=== PATIENT | male | born 1965 | race African-American/Black ===

== ENCOUNTER 2022-06-11 15:18 | Emergency (ER) | payer SELFPAY ==
[2022-06-11 16:16] LABS: #Eosinphils 0.5 thou/uL (0.0-0.7); #Monocytes 0.5 thou/uL (0.11-0.59); #Neutrophils 4.1 thou/uL (1.40-6.50); %Basophils 0.7 % (0.0-1.0); %Eosinophils 8.3 % (0.0-10.0); %Lymphocytes 16.2 % (21.0-51.0); %Neutrophils 66.8 % (42.0-75.0); Hemoglobin 11.3 g/dL (14.0-18.0); Mean Corpuscular HGB CONC 31.8 g/dL (32.0-36.0); Mean Corpuscular Hemoglobin 29.8 pg (27.0-31.0); Mean Corpuscular Volume 93.5 fL (78.0-98.0); Mean Platelet Volume 9.5 fL (7.4-10.4); Platelet Count 160 thou/uL (130-400); RBC Distribution Width 15.3 % (11.5-14.5); Red Blood Cell (RBC) Count 3.79 mill/uL (4.70-6.10); White Blood Cell (WBC) Count 6.2 thou/uL (4.8-10.8)
[2022-06-11] MEDS ORDERED: Acetaminophen 500 MG TAB ONE ×2 (16:32)
[2022-06-11 16:33] LABS: ALT (SGPT) 51 U/L (8-55); AST (SGOT) 40 U/L (5-34); Albumin 3.6 g/dL (3.5-5.0); Alkaline Phosphatase 204 U/L (40-110); Anion Gap 14 mmol/L (10-20); BUN (Urea Nitrogen) 21 mg/dL (8.4-25.7); Bilirubin, Total 0.3 mg/dL (0.2-1.2); Calc. Creatinine Clearance 0 mL/min (70-130); Calcium 9.1 mg/dL (7.8-10.44); Carbon Dioxide 25 mmol/L (22-29); Chloride 104 mmol/L (98-107); Estimated GFR 70; Globulin 5.3 g/dL (2.4-3.5); Glucose 157 mg/dL (70-105); Potassium 4.5 mmol/L (3.5-5.1); Protein, Total 8.9 g/dL (6.0-8.3); Sodium 138 mmol/L (136-145)
[2022-06-11 17:09] LABS: Bilirubin Negative (Negative); Blood, Urine Moderate (Negative); Clarity Cloudy (Clear); Glucose, Urine (Dipstick) Negative (Negative); Ketone, Urine Negative (Negative); Leukocyte Negative (Negative); Nitrite Negative (Negative); Protein, Urine (Dipstick) Negative (Neg-Trace); Urobilinogen 0.2 mg/dL (Less than 2)
[2022-06-11 17:11] LABS: RBC/HPF 21-50 HPF (0-3); WBC/HPF 0-3 HPF (0-3)
[2022-06-11 17:13] LABS: Bacteria/HPF 1+ HPF (None Seen)
== END 2022-06-11 19:00 | disposition home or self-care (01) ==
LOC: BURERS 15:18
DX: F91.8 Other conduct disorders (principal); F03.90 Unspecified dementia, unspecified severity, without behavioral disturbance, psychotic disturbance, mood disturbance, and anxiety; E78.5 Hyperlipidemia, unspecified; K21.9 Gastro-esophageal reflux disease without esophagitis; I10 Essential (primary) hypertension; Z21 Asymptomatic human immunodeficiency virus [HIV] infection status; Z86.73 Personal history of transient ischemic attack (TIA), and cerebral infarction without residual deficits; Z87.891 Personal history of nicotine dependence
CPT/HCPCS: 36415; 80053; 81003; 81015; 85025

== ENCOUNTER 2022-06-28 09:27 | Outpatient (CLI) | payer OTHER, SELFPAY | END 2022-06-28 09:28 | disposition home or self-care (01) | LOC: BURRAD 09:27 | PROVIDERS: ATTEND Nurse Practitioner Family | DX: R09.89 Other specified symptoms and signs involving the circulatory and respiratory systems (principal); K59.00 Constipation, unspecified | CPT/HCPCS: 71046 ==

== ENCOUNTER 2022-07-18 10:17 | Emergency (ER) | payer SELFPAY | END 2022-07-18 11:49 | disposition home or self-care (01) | LOC: BURERS 10:17 | DX: S31.119A Laceration without foreign body of abdominal wall, unspecified quadrant without penetration into peritoneal cavity, initial encounter (principal); S85.811A Laceration of other blood vessels at lower leg level, right leg, initial encounter; K21.9 Gastro-esophageal reflux disease without esophagitis; B20 Human immunodeficiency virus [HIV] disease; Z86.73 Personal history of transient ischemic attack (TIA), and cerebral infarction without residual deficits; E78.5 Hyperlipidemia, unspecified | CPT/HCPCS: 12001 ==

== ENCOUNTER 2022-08-02 12:51 | Outpatient (CLI) | payer SELFPAY | END 2022-08-02 12:52 | disposition home or self-care (01) | LOC: BURMANOR 12:51 | PROVIDERS: ATTEND Nurse Practitioner Family | DX: U07.1 COVID-19 (principal) | CPT/HCPCS: U0003; U0005 ==